=== PATIENT | female | born 1985 | race Caucasian/White ===

== ENCOUNTER → 2018-12-05 | Day surgery (SDC) | payer MEDICARE, OTHER ==
[~2018-12-05] MED LIST: IV RINGERS,LACTATED 1000ML 1,000 ML IV SCH; LABE100T5 PO; LIDOCAINE 1% PF 2 ML VIAL. ID PRN; LIDOCAINE 2% PF 5 ML VIAL. ONE; MIDAZOLAM HCL/PF 2 MG/2 ML VIAL. IV PRN; PHEN37.53 PO; PROPOFOL 20 ML IV ONE; PROPOFOL 40 ML IV ONE; fentaNYL PF VIAL 100 MCG/2 ML VIAL IV PRN
[2018-12-05 06:49] LABS: U PREG PATIENT NEGATIVE (NEG)
[2018-12-05 07:56] VITALS: BP 146/67
== END ==
LOC: SURG 06:19
PROVIDERS: ATTEND Internal Medicine Gastroenterology
DX: K29.50 Unspecified chronic gastritis without bleeding (principal); K57.30 Diverticulosis of large intestine without perforation or abscess without bleeding; K64.0 First degree hemorrhoids; D50.0 Iron deficiency anemia secondary to blood loss (chronic); F32.9 Major depressive disorder, single episode, unspecified; Z72.89 Other problems related to lifestyle
CPT/HCPCS: 43235; 45378; 81025; J2001; J2704